=== PATIENT | male | born 2000 | race Caucasian/White ===

== ENCOUNTER 2024-08-08 10:42 | Outpatient (OUT) | payer OTHER, SELFPAY ==
--- NOTE | 2024-08-08 10:45 | US_ITS ---
The [address] [address] Patient Name: MELANIE DEL VALLE MRN: [id number] date: 2000 Sex: M Assigned Patient Location: Current Patient Location: Accession/Order Number: [id number] Exam Date: 08/08/2024 11:01 Report Date: 08/11/2024 12:52 At the request of: DEZ MATTA Procedure: US scrotum EXAMINATION: US scrotum HISTORY: Testicle Lump, Testicle Pain, Varicocele ; left testicular lump COMPARISON: No relevant comparison available. TECHNIQUE: High-resolution sonographic imaging of the scrotum and contents was performed. FINDINGS: RIGHT: TESTICLE: Homogeneous echotexture. No visible mass. Color Doppler flow is present. Spectral Doppler demonstrates normal arterial waveform and flow, 4/2 cm/s (PSV/EDV), and normal venous wave flow averaging 2 cm/s. EPIDIDYMIS: Slightly heterogeneous with several tiny cysts. OTHER: Small hydrocele. LEFT: TESTICLE: Homogeneous echotexture. No visible mass. Color Doppler flow is present. Spectral Doppler demonstrates arterial waveform and flow, 5/2 cm/s (PSV/EDV), and normal venous flow averaging 2 cm/s. EPIDIDYMIS: 5 mm cyst within the epididymis corresponding to patient's palpable lump. OTHER: Small varicocele. US/US scrotum IMPRESSION: 1. Patient's palpable lump corresponds to a 5 mm simple cyst within the left epididymis. 2. Small left varicocele. Electronically authenticated by: EDGARDO PAZ Date: 08/11/2024 12:52
== END 2024-08-08 10:43 | disposition home or self-care (01) ==
LOC: US 10:42
PROVIDERS: PCP Family Medicine; Visit Provider Physician Assistant
DX: N50.89 Other specified disorders of the male genital organs (principal); N50.819 Testicular pain, unspecified; I86.1 Scrotal varices; N50.3 Cyst of epididymis
CPT/HCPCS: 76870